=== PATIENT | male | born 1955 | race Caucasian/White ===

== ENCOUNTER 2017-01-02 17:30 | Emergency (ER) | payer BC ==
[2017-01-02 17:52] VITALS: BP 125/78
--- NOTE | 2017-01-02 18:04 | UC ---
UC General HPI - HPI Summary HPI Summary: cmoplaint of dull aching pain in right flank for approx 2 days increase in urgency and frequency painful to urinate difficulty holding in his urine denies blood in urine having some sweats and chills for the last 2 nights taking advil for pain with some relief denies abdmonial pain at this time sick last weekend- chills, sweats ,fever for 2 days nasal congestion which is resolving - History of Current Complaint Chief Complaint: UCGeneralIllness Stated Complaint: FEVER,SWEATS,COUGH,BACK PAIN Time Seen by Provider: 01/02/17 17:58 Hx Obtained From: Patient - Allergy/Home Medications Allergies/Adverse Reactions: Allergies Allergy/AdvReac Type Severity Reaction Status Date / Time Sulfa Antibiotics Allergy Intermediate Hives Verified 01/02/17 17:52 Home Medications: Home Medications Dapagliflozin Propanediol [Farxiga] 10 mg PO DAILY 01/02/17 [History Confirmed 01/02/17] Pioglitazone TAB* [Actos TAB*] 15 mg PO DAILY 01/02/17 [History Confirmed ] Sitaglipt/Metform (NF) [Janumet (NF)] 1 tab PO BID 01/02/17 [ History Confirmed 01/02/17] PMH/Surg Hx/FS Hx/Imm Hx Previously Healthy: Yes Endocrine History Of: Reports: Diabetes Cardiovascular History Of: Reports: Hypertension Respiratory History Of: Reports: COPD - sarcoidosis in remission x10 yrs - Surgical History Surgical History: Yes Surgery Procedure, Year, and Place: lung bx. hernia repair. superficial thrombophlebitis - Family History Known Family History: Positive: Diabetes - parents Negative: Cardiac Disease, Hypertension - Social History Occupation: Employed Full-time Lives: With Family Alcohol Use: Rare Substance Use Type: None Smoking Status (MU): Former Smoker When Did the Patient Quit Smoking/Using Tobacco: 40 years - Immunization History Most Recent Influenza Vaccination: none Review of Systems Constitutional: Fever, Chills, Fatigue Skin: Negative Eyes: Negative ENT: Negative Respiratory: Negative Cardiovascular: Negative Gastrointestinal: Negative Genitourinary: Dysuria, Frequency, Urgency Motor: Negative Neurovascular: Negative Musculoskeletal: Negative Neurological: Negative, Headache All Other Systems Reviewed And Are Negative: Yes Physical Exam Triage Information Reviewed: Yes Appearance: No Pain Distress, Well-Nourished, Obese Vital Signs: Initial Vital Signs Temp 97.8 F 01/02/17 17:45 Pulse 63 01/02/17 17:45 Resp 17 01/02/17 17:45 BP 125/78 01/02/17 17:45 Pulse Ox 99 01/02/17 17:45 Vital Signs Reviewed: Yes Eyes: Positive: Conjunctiva Clear ENT: Positive: Pharynx normal, Nasal congestion, Nasal drainage, TMs normal. Negative: TM red Neck: Positive: No Lymphadenopathy Respiratory: Positive: Lungs clear, Normal breath sounds, No respiratory distress Cardiovascular: Positive: RRR, No Murmur, Pulses Normal Abdomen Description: Positive: Nontender, No Organomegaly, Soft. Negative: CVA Tenderness (R), CVA Tenderness (L) Bowel Sounds: Positive: Present Musculoskeletal: Positive: No Edema Neurological: Positive: Alert Psychological Exam: Normal Skin Exam: Normal Course/Dx - Course Course Of Treatment: exam completed. willtreat for UTI and possible pyleonephritis- with followup urology for check of prostate. URI symptoms resolving- no treatment - Differential Dx - Multi-Symptom Provider Diagnoses: UTI, URI Discharge - Discharge Plan Condition: Stable Disposition: HOME Prescriptions: Ciprofloxacin TAB* [Cipro Tab*] 500 mg PO BID #10 tab Patient Education Materials: Urinary Tract Infection in Men (ED) Referrals: Soila Pérez MD [Primary Care Provider] - Patrick Rich MD [Medical Doctor] - Additional Instructions: Start antibiotic as directed Increase fluids and rest Take acetaminophen or ibuprofen for fever or pain please followup with urologist Please review your discharge instructions. If your symptoms do not improve please call your primary care provider or return to urgent care
== END 2017-01-02 18:25 | disposition home or self-care (01) ==
LOC: UCCORT 17:30
DX: N39.0 Urinary tract infection, site not specified (principal); J06.9 Acute upper respiratory infection, unspecified; Z88.2 Allergy status to sulfonamides; Z87.891 Personal history of nicotine dependence
CPT/HCPCS: 87077; 87086; 87186; 99212; G0463

== ENCOUNTER 2017-10-18 07:06 | Emergency (ER) | payer BC ==
[2017-10-18 07:15] VITALS: BP 132/82
--- NOTE | 2017-10-18 07:45 | UC ---
Throat Pain/Nasal Aren HPI - HPI Summary HPI Summary: 62 year old male with cough and sinus pressure. c/o cough, congestion, headache , and sinus pressure worsening over 2-3 weeks. Also states trouble with balance recently and fell down stairs a few days ago, denies injury. In the past this turned into bronchitis . No CP, SOB or AYALA . Fell forward down 7 stairs 2 days ago. Did not hit head. No LOC . No MENON or neuro deficits or vision changes [ End ] - History of Current Complaint Chief Complaint: UCRespiratory Stated Complaint: COUGH,SINUS Time Seen by Provider: 10/18/17 07:21 Hx Obtained From: Patient Onset/Duration: Gradual Onset Cough: Productive - Allergies/Home Medications Allergies/Adverse Reactions: Allergies Allergy/AdvReac Type Severity Reaction Status Date / Time Sulfa Antibiotics Allergy Intermediate Hives Verified 10/18/17 07:15 PMH/Surg Hx/FS Hx/Imm Hx Previously Healthy: Yes Endocrine History: Diabetes, Dyslipidemia Cardiovascular History: Hypertension - Surgical History Surgical History: Yes Surgery Procedure, Year, and Place: lung bx. hernia repair. superficial thrombophlebitis - Family History Known Family History: Positive: Diabetes - parents Negative: Cardiac Disease, Hypertension - Social History Occupation: Employed Full-time Lives: With Family Alcohol Use: Rare Substance Use Type: None Smoking Status (MU): Former Smoker When Did the Patient Quit Smoking/Using Tobacco: 40 years - Immunization History Most Recent Influenza Vaccination: no Review of Systems Constitutional: Fatigue ENT: Ear Ache, Nasal Discharge, Sinus Congestion, Sinus Pain/Tenderness Respiratory: Cough All Other Systems Reviewed And Are Negative: Yes Physical Exam Triage Information Reviewed: Yes Appearance: Well-Appearing, No Pain Distress, Well-Nourished Vital Signs: Initial Vital Signs Temp 98.8 F 10/18/17 07:11 Pulse 77 10/18/17 07:11 Resp 18 10/18/17 07:11 BP 132/82 10/18/17 07:11 Pulse Ox 97 10/18/17 07:11 Eye Exam: Normal ENT Exam: Normal ENT: Positive: Nasal congestion, TM dull, Sinus tenderness - frontal b/l Dental Exam: Normal Neck exam: Normal Neck: Positive: 1 Respiratory Exam: Normal Cardiovascular Exam: Normal Musculoskeletal Exam: Normal Neurological Exam: Normal Psychological Exam: Normal Skin Exam: Normal Throat Pain/Nasal Course/Dx - Differential Dx/Diagnosis Differential Diagnosis/HQI/PQRI: Pharyngitis, Sinusitis, Tonsillitis, URI Provider Diagnoses: sinusitis Discharge - Discharge Plan Condition: Good Disposition: HOME Prescriptions: Amoxicillin/Clavulanate TAB* [Augmentin TAB 875*] 875 mg PO BID #20 tab Patient Education Materials: Sinusitis (ED) Referrals: Soila Pérez MD [Primary Care Provider] - 4 Days (if you are not improved )
== END 2017-10-18 07:37 | disposition home or self-care (01) ==
LOC: UCCORT 07:06
DX: J32.9 Chronic sinusitis, unspecified (principal); R53.83 Other fatigue; E11.9 Type 2 diabetes mellitus without complications; E78.5 Hyperlipidemia, unspecified; I10 Essential (primary) hypertension; Z88.2 Allergy status to sulfonamides; Z87.891 Personal history of nicotine dependence
CPT/HCPCS: 99212; G0463

== ENCOUNTER 2018-03-14 12:59 | Emergency (ER) | payer BC ==
[2018-03-14 13:55] VITALS: BP 135/75
--- NOTE | 2018-03-14 14:26 | UC ---
Complaint Male HPI - HPI Summary HPI Summary: 62 year old male with history of htn, hld and DM here for urinary symptoms. Reports increased frequency, cloudy urine and pain with urination. Denies hematuria, fever, chills, flank pain or any other complaints. Of note, patient was treated with abx for UTI two months ago. Denies history of STD/STI or concern for STDs. - History of Current Complaint Chief Complaint: UCGU Stated Complaint: URINARY Time Seen by Provider: 03/14/18 14:10 Hx Obtained From: Patient Onset/Duration: Sudden Onset Timing: Intermittent Severity Currently: Mild Pain Intensity: 2 Location: Suprapubic Character: Burning Associated Signs And Symptoms: Positive: Dysuria. Negative: Blood in Stool, Nausea - Allergies/Home Medications Allergies/Adverse Reactions: Allergies Allergy/AdvReac Type Severity Reaction Status Date / Time Sulfa (Sulfonamide Allergy Hives Verified 03/14/18 13:42 Antibiotics) Home Medications: Home Medications Atorvastatin* [Lipitor 10 MG*] 10 mg DAILY 03/14/18 [History Confirmed 03/14/18] Dapagliflozin Propanediol [Farxiga] 10 mg PO DAILY 03/14/18 [History Confirmed 03/14/18] Steroid Med 1 tab BID 03/14/18 [History Confirmed 03/14/18] PMH/Surg Hx/FS Hx/Imm Hx Endocrine History: Diabetes, Dyslipidemia Cardiovascular History: Hypertension - Surgical History Surgical History: Yes Surgery Procedure, Year, and Place: lung bx. hernia repair. superficial thrombophlebitis. cardiac cath - Family History Known Family History: Positive: Diabetes - parents Negative: Cardiac Disease, Hypertension - Social History Alcohol Use: Rare Substance Use Type: None Smoking Status (MU): Former Smoker When Did the Patient Quit Smoking/Using Tobacco: 40 years - Immunization History Most Recent Influenza Vaccination: no Review of Systems Constitutional: Negative Skin: Negative Eyes: Negative ENT: Negative Respiratory: Negative Cardiovascular: Negative Gastrointestinal: Negative Genitourinary: Dysuria, Frequency, Urgency Motor: Negative Neurovascular: Negative Musculoskeletal: Negative Neurological: Negative Psychological: Negative All Other Systems Reviewed And Are Negative: Yes Physical Exam Triage Information Reviewed: Yes Appearance: Well-Appearing, No Pain Distress Vital Signs: Initial Vital Signs Temp 36.3 C 03/14/18 13:46 Pulse 62 03/14/18 13:46 Resp 16 03/14/18 13:46 BP 135/75 03/14/18 13:46 Pulse Ox 96 03/14/18 13:46 Eye Exam: Normal Dental Exam: Normal Respiratory Exam: Normal Cardiovascular Exam: Normal Abdominal Exam: Normal Complaint Male Course/Dx - Differential Dx/Diagnosis Differential Diagnosis/HQI/PQRI: Epididymitis, Paraphimosis, Pyelonephritis, Urinary Tract Infection Provider Diagnoses: UTI Discharge - Sign-Out/Discharge Documenting (check all that apply): Discharge/Admit/Transfer - Discharge Plan Condition: Good Disposition: HOME Prescriptions: Levofloxacin TAB* [Levaquin TAB*] 750 mg PO DAILY #7 tab Patient Education Materials: Levofloxacin (By mouth), Urinary Tract Infection in Men (ED), Urinary Tract Infection in Men (DC) Referrals: Soila Pérez MD [Primary Care Provider] - Patrick Rich MD [Medical Doctor] - Additional Instructions: Follow up with urologist. complete antibiotics as prescribed. Take the diclofenac that you have for pain. - Billing Disposition and Condition Condition: GOOD Disposition: HOME
== END 2018-03-14 14:40 | disposition home or self-care (01) ==
LOC: UCCORT 12:59
DX: N39.0 Urinary tract infection, site not specified (principal); Z87.891 Personal history of nicotine dependence; Z88.2 Allergy status to sulfonamides
CPT/HCPCS: 81003; 87077; 87086; 87186; 99212; G0463

== ENCOUNTER 2018-05-24 09:15 | Emergency (ER) | payer BC ==
[2018-05-24 09:34] VITALS: BP 111/90
--- NOTE | 2018-05-24 10:09 | UC ---
General HPI - HPI Summary HPI Summary: Patient states "legs are acting up again". He first noticed it last evening. He describes this as a cellulitis which he has had on more than one occasion in the past. He notes the beginning of redness to the insides of both lower legs. He notes that last evening he felt a little warm. He admits to some mild swelling in his right lower leg which he reports is chronic and unchanged that was from a long-standing clot some time ago. He has no pain in his calves he denies any fever or chills chest pain or short of breath. The rash on the inside of the right lower leg is a little sore which he also reports is consistent with prior history cellulitis. - History of Current Complaint Chief Complaint: UCLowerExtremity Stated Complaint: BILATERAL LEG COMPLAINT Time Seen by Provider: 05/24/18 10:03 Hx Obtained From: Patient Onset/Duration: Gradual Onset Timing: Constant Pain Intensity: 2 Aggravating: Recent heat, possible chafing from footwear. Patient also notes scar tissue the inside of his right lower leg which is the site recurrent cellulitis. Alleviating: Nothing Associated Signs & Symptoms: Negative: Cough, Chest Pain, Fever, SOB - Allergy/Home Medications Allergies/Adverse Reactions: Allergies Allergy/AdvReac Type Severity Reaction Status Date / Time Sulfa (Sulfonamide Allergy Hives Verified 05/24/18 09:32 Antibiotics) PMH/Surg Hx/FS Hx/Imm Hx Endocrine History: Diabetes, Dyslipidemia Cardiovascular History: Hypertension - Surgical History Surgical History: Yes Surgery Procedure, Year, and Place: lung bx. hernia repair. superficial thrombophlebitis. cardiac cath - Family History Known Family History: Positive: Diabetes - parents Negative: Cardiac Disease, Hypertension Family History: Vascular disease, hypertension - Social History Occupation: Employed Full-time Lives: With Family Alcohol Use: Rare Substance Use Type: None Smoking Status (MU): Former Smoker When Did the Patient Quit Smoking/Using Tobacco: 40 years - Immunization History Most Recent Influenza Vaccination: no Vaccination Up to Date: Yes Review of Systems Constitutional: Negative Skin: Rash - inside lower legs Eyes: Negative ENT: Negative Respiratory: Negative Cardiovascular: Negative Gastrointestinal: Negative Genitourinary: Negative Motor: Negative Neurovascular: Negative Musculoskeletal: Edema - RLE, chronic with no change from remote clot in a varicose vein Neurological: Negative Psychological: Negative Is Patient Immunocompromised?: No All Other Systems Reviewed And Are Negative: Yes Physical Exam Triage Information Reviewed: Yes Appearance: Well-Appearing Vital Signs: Initial Vital Signs Temp 98.0 F 05/24/18 09:24 Pulse 66 05/24/18 09:24 Resp 17 05/24/18 09:24 BP 111/90 05/24/18 09:24 Pulse Ox 98 05/24/18 09:24 Eyes: Positive: Conjunctiva Clear ENT: Positive: Normal ENT inspection Neck: Positive: Supple, Nontender, No Lymphadenopathy Respiratory: Positive: Lungs clear, Normal breath sounds Cardiovascular: Positive: RRR, No Murmur, Pulses Normal Abdomen Description: Positive: Nontender, No Organomegaly, Soft Bowel Sounds: Positive: Present Musculoskeletal: Positive: ROM Intact, Edema @ - RLE with varicose veins( chronic with no chnange)., Other: - No calf tenderness. Neurological: Positive: Alert Psychological: Positive: Age Appropriate Behavior Skin: Positive: rashes - Mild erythema to each medial lower leg. R mildly tender. Not circumfrential or fluctuant and no streaking or inguinal adenopathy. No pain involvement. Course/Dx - Course Course Of Treatment: Patient is a reliable historian the edema the right lower leg is chronic and unchanged. He has history of recurrent cellulitis and notes that this is consistent with cellulitis. His exam supports [facility] as well. No concern for DVT or septic joint. Treat with Keflex and close follow-up with his primary care. - Differential Dx - Multi-Symptom Provider Diagnoses: Cellulitis medial aspect of both lower extremities. Discharge - Sign-Out/Discharge Documenting (check all that apply): Discharge/Admit/Transfer - Discharge Plan Condition: Stable Disposition: HOME Prescriptions: Cephalexin CAP* [Keflex CAP*] 500 mg PO TID #30 cap Patient Education Materials: Cellulitis (DC) Referrals: Soila Pérez MD [Primary Care Provider] - 3 Days - Billing Disposition and Condition Condition: STABLE Disposition: Home
== END 2018-05-24 10:18 | disposition home or self-care (01) ==
LOC: UCCORT 09:15
DX: L03.116 Cellulitis of left lower limb (principal); L03.115 Cellulitis of right lower limb; Z88.8 Allergy status to other drugs, medicaments and biological substances; E11.9 Type 2 diabetes mellitus without complications; I10 Essential (primary) hypertension; Z87.891 Personal history of nicotine dependence
CPT/HCPCS: 99212; G0463